=== PATIENT | female | born 2000 | race Caucasian/White ===

== ENCOUNTER 2022-10-26 17:50 | Emergency (ER) | payer OTHER, SELFPAY ==
[2022-10-26 17:54] VITALS: BP 91/57; PULSE 120; RESP 18; TEMP 36.9; O2SAT 98; BMI 18.8
[2022-10-26] MEDS: prednisoLONE 15 MG/5ML SOLN 60 MG PO (19:59)
--- NOTE | 2022-10-29 13:40 | ED.GENADULT ---
HPI - General Adult General Chief complaint: Sore Throat Stated complaint: Sore throat, trouble breathing Time Seen by Provider: 10/26/22 19:16 History of Present Illness HPI narrative: not feeling well x one week . c/o achiness . on pcn for strep and dexamethasone. feels her tonsils are swollen 22-year-old young woman presenting to the emergency department accompanied by her mom with concern of swollen throat. Worried about potential difficulty breathing. Has been swallowing fluids saliva. Just hurts to swallow. Started feeling sick about a week ago with increasing sore throat. Was treated presumptively in a virtual visit for strep pharyngitis with penicillin. Continue to worsen seen 2 days ago given IV fluids in Urgent Care given a singular dose of dexamethasone and discontinued on penicillin and changed to Augmentin. White count was over 16,000. Strep testing was negative as well as Monospot though admittedly was little early for potential positive for mono. Are planning later followup to recheck. Has been sleeping a little elevated. Had an episode where she panicked feeling like she could not breathe due to the fullness she feels in her throat. No rashes. She has no feeling of abdominal fullness or pain/discomfort. Is back home from [facility]. Related Data Home Medications Medication Instructions Recorded Confirmed dexamethasone 6 mg tablet 6 mg PO QDAY 10/24/22 10/24/22 penicillin V potassium 500 mg 500 mg PO TID 10/24/22 10/24/22 tablet Previous Rx's Medication Instructions Recorded amoxicillin 875 mg-potassium 1 tab PO BID 7 days #14 tabs 10/24/22 clavulanate 125 mg tablet cephalexin 500 mg capsule 500 mg PO TID 6 days #18 caps 10/26/22 prednisolone 15 mg/5 mL oral See Rx Instructions .Route 10/26/22 solution .COMPLEX #100 mL Allergies Allergy/AdvReac Type Severity Reaction Status Date / Time No Known Allergies Allergy Unknown Unknown Verified 09/27/22 10:06 Review of Systems Status of ROS: Reports: 6 or more systems reviewed and unremarkable except as noted in History and below [facility] Medical History Tonsillitis ?J03.90 - Acute tonsillitis, unspecified (ICD-10) Dehydration ?E86.0 - Dehydration (ICD-10) Family history of breast cancer ?Z80.3 - Family history of malignant neoplasm of breast (ICD-10) Surgical History History of lymph node biopsy ?Z98.890 - Other specified postprocedural states (ICD-10) Social History Smoking Status: Never smoker Do you use any of these nicotine containing products: None How often do you have a drink containing alcohol: never AUDIT-C Alcohol total score: 0 Non-prescribed substance use: denies use Little interest or pleasure in doing things: several days Feeling down, depressed, or hopeless: several days Exam Narrative: Exam Narrative: Pleasant. Calm. Hot potato voice. Appears to be breathing easily though. No wheeze no stridor. Does not demonstrate trismus. Opens her mouth quite well for exam. Oropharynx is moist. Tonsils are beefy red and 2+ with diffuse exudate and some darkening over this exudate. Symmetrical. Uvula is not inflamed. Midline though stuck to 1 of the tonsils at 1 point. Neck is supple with anterior cervical lymphadenopathy. There is clearly though also posterior cervical lymphadenopathy-shotty. Lungs appear to be clear. Heart is in elevated rate but regular rhythm. Abdomen is flat soft nontender without clear HSM. Const: Documenting provider has reviewed patient's vital signs: yes Course Vital Signs Vital signs: Initial Vital Signs Temperature 98.5 F 10/26/22 17:54 Temperature Source Temporal Artery Scan 10/26/22 17:54 Pulse Rate 120 H 10/26/22 17:54 Respiratory Rate 18 10/26/22 17:54 Blood Pressure 91/57 L 10/26/22 17:54 Blood Pressure Mean 68 L 10/26/22 17:54 Blood Pressure Position Sitting 10/26/22 17:54 Pulse Oximetry 98 10/26/22 17:54 Oxygen Delivery Method Room Air 10/26/22 17:54 Vital Signs Temperature 98.5 F 10/26/22 17:54 Pulse Rate 120 H 10/26/22 17:54 Respiratory Rate 18 10/26/22 17:54 Blood Pressure 91/57 L 10/26/22 17:54 Pulse Oximetry 98 10/26/22 17:54 Oxygen Delivery Method Room Air 06/17/23 17:54 Temperature 98.5 F 10/26/22 17:54 Pulse Rate 120 H 10/26/22 17:54 Respiratory Rate 18 10/26/22 17:54 Blood Pressure 91/57 L 10/26/22 17:54 Pulse Oximetry 98 10/26/22 17:54 Oxygen Delivery Method Room Air 10/26/22 17:54 Medical Decision Making MDM Narrative Medical decision making narrative: Labs collected 2 days ago showed elevations in absolute lymphocytes and monocytes. I think mono is likely diagnosis here; throat, tonsils in particular look rather troubled I think typical for mono. This is atypical for strep. May be a secondary bacterial tonsillitis at this point. She has already been initiated on antibiotics but if mono was indeed of concern maybe move farther from the -cillins and change yet again to cephalexin. I do not think that there is an actual abscess here. She is not appear to have that kind of discomfort nor is there asymmetry. I do think though that longer course of steroid beyond to singular doses would be helpful. Does not have any abdominal symptoms at this time. Discussed concerning signs and symptoms. See patient discharge plan. Medical Records Medical records reviewed: Yes I reviewed the patient's medical records Lab Data Lab results reviewed: Yes I reviewed the patient's lab results Discharge Plan Discharge Clinical Impression: Exudative tonsillitis Patient Disposition: Home w/ Parent or Adult Condition: Stable Additional Instructions: Focus on hydration; popsicles and jello count. Keep using the cool mist humidifier. Can take up to 600 mg of ibuprofen or up to 850 mg of acetaminophen per dose. Might try anesthetic throat lozenges or sprays like Sucrets or Chloraseptic. Might place 1/4 tsp salt in 4 oz warm water and do saltwater gargles a couple of times daily. Since we're all suspecting mono, I am sorry, but I would like to switch antibiotics one more time just to avoid a potential reaction. Cephalexin and prednisolone from [facility]. (so sorry. Out of these medications in the machine. That is why you get the prednisolone dose here) can otherwise start these medications from your pharmacy in the morning Avoid contact-type athletics for now. Be seen for marked increase abdominal pain/fullness/swelling, inability to swallow secretions, marked increase in pain when opening your mouth or persistent feeling like you are having trouble breathing. Follow-up next week as planned. Prescriptions: New cephalexin 500 mg capsule 500 mg PO TID 6 Days Qty: 18 0RF prednisolone 15 mg/5 mL solution See Rx Instructions .ROUTE .COMPLEX Qty: 100 0RF Rx Instructions: take 60mg on day 1; take 40 mg po daily days 2-5 No Action penicillin V potassium 500 mg tablet 500 mg PO TID dexamethasone 6 mg tablet 6 mg PO QDAY amoxicillin-pot clavulanate 875-125 mg tablet 1 tab PO BID 7 Days Qty: 14 0RF Follow Up/Referrals: Brianna Licea, LUCY[facility] [Primary Care Provider] - Stand Alone Forms: MyHealth Info Instructions
== END 2022-10-26 20:05 | disposition home or self-care (01) ==
LOC: ED 19:44
PROVIDERS: Emergency Provider Family Medicine; PCP Physician Assistant Medical
DX: J03.90 Acute tonsillitis, unspecified (principal)
CPT/HCPCS: 99282; 99284; J7510

== ENCOUNTER 2024-01-06 10:24 | Outpatient (CLI) | payer OTHER, SELFPAY ==
--- OUTSIDE RECORDS SUMMARY | 2024-01-06 10:31 | XMS_ITS | Clinical Summary ---
Author Organization [facility] Address [address] [place] [address]. 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
--- OUTSIDE RECORDS SUMMARY | 2024-01-06 10:32 | XMS_ITS | Referral Summary ---
Author Organization [facility] Address [address] [place] [address]. [place] [address] Care Team Providers Care Dairy Feed Sales Consultant Name Role Phone No Ref-Primary, Physician Primary [...] Comments Blood Pressure 116/71 04/20/2019 9:11 PM RECEPTIONIST [employer] Pulse 118 04/20/2019 9:11 PM RECEPTIONIST [employer] Temperature 38.9 ??C (102 ??F) 04/20/2019 9:11 PM RECEPTIONIST [employer] Respiratory Rate - - Oxygen Saturation 97% 04/20/2019 9:11 PM RECEPTIONIST [employer] Inhaled Oxygen Concentration - - Weight 60.8 kg (134 lb) 04/20/2019 9:11 PM RECEPTIONIST [employer] Height - - Body Mass Index - - Plan of Treatment Not on file Care Teams Dairy Feed Sales Consultant Relationship Specialty Start Date End Date No Ref-Primary, Physician PCP - General 04/20/19
[2024-01-06 14:58] LABS: Chlamydia DNA Amplified* NOT DETECTED (No Detected); GC DNA Amplified* NOT DETECTED (No Detected)
== END 2024-01-06 10:25 | disposition home or self-care (01) ==
LOC: FRMREF 10:30
PROVIDERS: PCP Physician Assistant Medical; Visit Provider Physician Assistant Medical
DX: Z11.3 Encounter for screening for infections with a predominantly sexual mode of transmission (principal)
CPT/HCPCS: 87491; 87591; 87624